=== PATIENT | male | born 1960 | race Caucasian/White ===

== ENCOUNTER 2017-08-27 16:36 | Emergency (ER) | payer OTHER ==
[~2017-08-27] VITALS: Ht 170.2 cm; Wt 65.9 kg
[2017-08-27] MEDS ORDERED: ibuprofen tablet 400 MG TABLET PO ONE (17:10)
[2017-08-27 17:31] VITALS: BP 142/74
== END 2017-08-27 17:34 | disposition home or self-care (01) ==
LOC: ER 16:38
DX: S93.402A Sprain of unspecified ligament of left ankle, initial encounter (principal); X50.1XXA Overexertion from prolonged static or awkward postures, initial encounter; Y93.89 Activity, other specified; Y92.89 Other specified places as the place of occurrence of the external cause; Y99.8 Other external cause status
CPT/HCPCS: 99281